=== PATIENT | female | born 1960 | race Caucasian/White ===

== ENCOUNTER 2017-11-07 01:18 | Emergency (ER) | payer OTHER ==
[~2017-11-07] VITALS: Ht 162.6 cm; Wt 74.8 kg
[~2017-11-07 01:18] MED LIST: GLYBURIDE5 MG PO; METFORMIN HCL1000 MG PO
[2017-11-07] MEDS ORDERED: JANUVIA100 MG PO (01:31)
[2017-11-07] MEDS ORDERED: FARXIGA PO (01:31)
[2017-11-07] MEDS ORDERED: CITALOPRAM HBR20 MG PO (01:31)
[2017-11-07] MEDS ORDERED: SIMVASTATIN40 MG PO (01:31)
[2017-11-07] MEDS ORDERED: LISINOPRIL2.5 MG PO (01:31)
--- NOTE | 2017-11-07 02:49 | Diagnostic Imaging Report ---
Examination: CT head without contrast Clinical Indication: Fall; head injury. Technique: Transaxial noncontrast images from the skull base through the vertex were obtained. Sagittal and coronal reformatted images were done. Comparison: None. Findings: Scalp: No abnormalities. Bones: Intact. No fractures. No blastic or lytic lesions. Brain sulci: Appropriate for patient's age. Ventricles: Normal in size and configuration. No hydrocephalus. Extra-axial space: No abnormalities. Parenchyma: No abnormal densities. No masses, hemorrhage, or acute or chronic cortical based vascular insults. Suprasellar region: No abnormalities. Craniocervical junction: The foramen magnum is patent. No Chiari one malformation. Impression: No intracranial abnormality. Signed by: Dr. Ginette Galan M.D. on 11/07/2017 2:45 AM
--- NOTE | 2017-11-07 02:50 | Diagnostic Imaging Report ---
Examination: CT CERVICAL SPINE WITHOUT CONTRAST HISTORY: Fall. Neck pain. COMPARISON:None. TECHNIQUE: Multidetector helical axial images were obtained without contrast from the foramen magnum to T1. Coronal and sagittal reformatted images were done. Bone and soft tissue windows were evaluated. FINDINGS: Alignment:Normal alignment and lordosis. Vertebrae: Normal height and density. No acute fracture, infection or neoplasm. Disc space heights: Normal height. Caliber of spinal canal: Developmentally normal. Posterior fossa and craniocervical junction: Foramen magnum patent. No Chiari 1 malformation. Soft tissues: No abnormality. Degenerative changes: No foraminal or canal stenosis. IMPRESSION: No abnormalities. Signed by: Dr. Ginette Galan M.D. on 11/07/2017 2:47 AM
== END 2017-11-07 03:05 | disposition home or self-care (01) ==
LOC: ER 01:18
DX: S00.03XA Contusion of scalp, initial encounter (principal); M54.2 Cervicalgia; W01.0XXA Fall on same level from slipping, tripping and stumbling without subsequent striking against object, initial encounter; Y99.0 Civilian activity done for income or pay; I10 Essential (primary) hypertension; E11.9 Type 2 diabetes mellitus without complications; Z85.3 Personal history of malignant neoplasm of breast; F17.210 Nicotine dependence, cigarettes, uncomplicated
CPT/HCPCS: 70450; 72125; 99283